=== PATIENT | female | born 1970 | race Caucasian/White ===

== ENCOUNTER 2019-03-31 16:25 | Emergency (ER) | payer MEDICAID ==
[~2019-03-31] VITALS: Ht 149.9 cm; Wt 77.0 kg
[2019-03-31] MEDS ORDERED: NAPROXEN 250MG TABLET PO STA (17:27)
[2019-03-31 18:30] VITALS: BP 145/78
== END 2019-03-31 18:32 | disposition home or self-care (01) ==
LOC: ER 16:25
DX: S39.012A Strain of muscle, fascia and tendon of lower back, initial encounter (principal); M79.606 Pain in leg, unspecified; Z98.890 Other specified postprocedural states
CPT/HCPCS: 99282